=== PATIENT | female | born 1990 | race Hispanic/Latino ===

== ENCOUNTER 2024-06-22 01:46 | Emergency (ER) | payer MEDICAID, OTHER, SELFPAY ==
[2024-06-22] MEDS ORDERED: Dexamethasone 10 MG/ML VIAL ONE (02:16)
== END 2024-06-22 02:29 | disposition home or self-care (01) ==
LOC: CSHERS 01:46
DX: J98.8 Other specified respiratory disorders (principal)
CPT/HCPCS: 87428; 96372; 99283; J1100